=== PATIENT | female | born 1985 | race Caucasian/White ===

== ENCOUNTER 2019-10-23 10:50 | Emergency (ER) | payer BC ==
[~2019-10-23] VITALS: Ht 154.9 cm; Wt 111.0 kg
--- NOTE | 2019-10-23 11:17 | NUR ---
MAXIMILIAN THOMAS [phone]
[2019-10-23] MEDS ORDERED: LORazepam 2 mg/ml vial IV ONE (11:25)
--- NOTE | 2019-10-23 11:43 | NUR ---
up ambulating self to br after seeing dr. resendiz.
[2019-10-23] MEDS ORDERED: triamcinolone acetonide 40mg/ml inj IM ONE (11:45)
[2019-10-23] MEDS ORDERED: methylPREDNISolone sod succ 125mg/2ml vial IV ONE (11:45)
[2019-10-23] MEDS ORDERED: normal saline 1000ml 1,000 ML IV ONE (11:45)
[2019-10-23 11:54] VITALS: BP 122/76
[2019-10-23] MEDS ORDERED: EPIN0.1521 IM (13:00)
== END 2019-10-23 13:23 | disposition home or self-care (01) ==
LOC: ER 10:51
DX: T78.40XA Allergy, unspecified, initial encounter (principal); L50.9 Urticaria, unspecified; F41.9 Anxiety disorder, unspecified; F17.200 Nicotine dependence, unspecified, uncomplicated; X58.XXXA Exposure to other specified factors, initial encounter
CPT/HCPCS: 93005; 96361; 96372; 96374; 96375; 99284; J2060; J2930; J3301; J7030

== ENCOUNTER 2019-10-25 09:44 | Emergency (ER) | payer BC ==
[~2019-10-25] VITALS: Ht 157.5 cm; Wt 111.4 kg
[~2019-10-25 09:44] MED LIST: EPIN0.1521 IM
[2019-10-25 10:18] VITALS: BP 153/88
[2019-10-25] MEDS ORDERED: ALBU8HFA PO (10:42)
== END 2019-10-25 10:52 | disposition home or self-care (01) ==
LOC: ER 09:45
DX: T78.49XA Other allergy, initial encounter (principal); J45.909 Unspecified asthma, uncomplicated; F41.9 Anxiety disorder, unspecified; Z90.49 Acquired absence of other specified parts of digestive tract; Z79.899 Other long term (current) drug therapy; X58.XXXA Exposure to other specified factors, initial encounter
CPT/HCPCS: 99283